=== PATIENT | male | born 1945 | race Caucasian/White ===

== ENCOUNTER → 2017-01-03 | Outpatient (CLI) | payer MEDICARE, BC ==
[~2017-01-03] MED LIST: TRIA10.8 NAS; WARF5TAB PO
== END | disposition home or self-care (01) ==
LOC: STAR 13:24
PROVIDERS: ATTEND Surgery
DX: Z01.818 Encounter for other preprocedural examination (principal); K42.9 Umbilical hernia without obstruction or gangrene; E66.9 Obesity, unspecified; K21.9 Gastro-esophageal reflux disease without esophagitis; G47.30 Sleep apnea, unspecified; R79.1 Abnormal coagulation profile
CPT/HCPCS: 36415; 85025; 85610; 85730; 93005

== ENCOUNTER 2017-01-08 08:46 | Day surgery (SDC) | payer MEDICARE, BC ==
[~2017-01-08] VITALS: Ht 180.3 cm; Wt 120.0 kg
[2017-01-08] MEDS ORDERED: LACTATED RINGERS 1,000 ML IV SCH (09:37)
[2017-01-08] MEDS ORDERED: BACITRACIN 50,000 UNIT ONE (10:10)
[2017-01-08] MEDS ORDERED: BUPIVACAINE/PF 0.5% ONE (10:10)
[2017-01-08] MEDS ORDERED: ROPIvacaine/PF 0.5%, 30 ML ONE (10:21)
[2017-01-08] MEDS ORDERED: FENTANYL PF 250 MCG/5ML ONE (10:31)
[2017-01-08] MEDS ORDERED: PROPOFOL 10 MG/ML, 20ML ONE (10:36)
[2017-01-08] MEDS ORDERED: CEFAZOLIN 1,000 MG ONE (10:36)
[2017-01-08] MEDS ORDERED: ONDANSETRON 2MG/ML, 2ML ONE (10:36)
[2017-01-08] MEDS ORDERED: DEXAMETHASONE 4 MG/ML, 1ML ONE (10:36)
[2017-01-08] MEDS ORDERED: ROCURONIUM 10 MG/ML ONE (10:36)
[2017-01-08] MEDS ORDERED: METOCLOPRAMIDE 5 MG/ML, 2ML ONE (10:36)
[2017-01-08] MEDS ORDERED: NEOSTIGMINE 1 MG/ML, 10ML ONE (10:36)
[2017-01-08] MEDS ORDERED: SUCCINYLCHOLINE 20 MG/ML, 10ML ONE (10:36)
[2017-01-08] MEDS ORDERED: GLYCOPYRROLATE 0.2MG/1ML ONE (10:36)
[2017-01-08] MEDS ORDERED: LIDOCAINE 0.5%-EPI 1:200K, 50ML ONE (10:57)
[2017-01-08] MEDS ORDERED: LABETALOL 5MG/ML, 20ML IV PRN (12:00)
[2017-01-08] MEDS ORDERED: hydrALAzine 20 MG/ML, 1ML IV PRN (12:00)
[2017-01-08] MEDS ORDERED: ONDANSETRON 2MG/ML, 2ML IVPush PRN (12:00)
[2017-01-08] MEDS ORDERED: ACETAMINOPHEN 325 MG TABLET PO PRN (12:00)
[2017-01-08] MEDS ORDERED: FENTANYL PF 100 MCG/2ML IV PRN (12:00)
[2017-01-08] MEDS ORDERED: ALBUTEROL SULFATE 2.5 MG/3 ML NPPB PRN (12:00)
[2017-01-08] MEDS ORDERED: OXYcodone 5 MG/5 ML ORAL.SOL UDC PO PRN (12:00)
[2017-01-08] MEDS ORDERED: EPHEDRINE 50 MG/ML, 1ML IVPush PRN (12:00)
[2017-01-08] MEDS ORDERED: METOPROLOL 1 MG/ML, 5ML IV PRN (12:00)
[2017-01-08] MEDS ORDERED: HYDROmorphone 1 MG/ML, 1ML IV PRN (12:00)
[2017-01-08] MEDS ORDERED: MEPERIDINE/PF 25MG/0.5ML IVPush PRN (12:00)
[2017-01-08] MEDS ORDERED: ACETAMINOPHEN 325 MG TABLET ONE (12:04)
[2017-01-08] MEDS ORDERED: ACETAMINOPHEN 650 MG/20.3 ML UDC ONE (12:04)
[2017-01-08] MEDS ORDERED: OXYcodone 5 MG/5 ML ORAL.SOL UDC ONE (12:04)
[2017-01-08] MEDS ORDERED: FENTANYL PF 100 MCG/2ML ONE (12:04)
== END 2017-01-08 13:47 ==
LOC: OUT 08:46
PROVIDERS: ATTEND Surgery
PROC: 0WQF0ZZ Repair Abdominal Wall, Open Approach (ICD-10-PCS; principal; 2017-01-08 10:30)
DX: K42.1 Umbilical hernia with gangrene (principal); K21.9 Gastro-esophageal reflux disease without esophagitis; Z89.9 Acquired absence of limb, unspecified; Z98.890 Other specified postprocedural states; Z86.711 Personal history of pulmonary embolism; Z98.52 Vasectomy status; Z87.891 Personal history of nicotine dependence; E66.01 Morbid (severe) obesity due to excess calories
CPT/HCPCS: 36415; 49587; 85610; 85730; C1781; J0330; J0690; J1100; J2405; J2704; J2710; J2765; J2795; J3010; J3490